=== PATIENT | female | born 1965 | race Caucasian/White ===

== ENCOUNTER 2021-05-25 18:30 | Emergency (ER) | payer MEDICARE ==
[~2021-05-25] VITALS: Ht 165.1 cm; Wt 59.1 kg
--- NOTE | 2021-05-25 18:49 | PHYS DOC ---
Past Medical History Past Medical History: GERD, Other Additional Past Medical Histor: AVM brain, deaf in R ear,VARICOSE VEINS Past Surgical History: Cholecystectomy, , Other Additional Past Surgical Histo: VWIN ATRIPPING Smoking Status: Never Smoker Alcohol Use: Rarely Drug Use: None General Adult EDM: Chief Complaint: CHEST PAIN HPI: HPI: 55-year-old female presents to the emergency department complaining of chest pain that feels like a sharp sensation in the left side of her chest that started around 1300 today while she was at work. 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 She reports that palpating the left side of her chest makes the pain worse. She denies any radiation of pain, shortness of breath, cough, syncope, abdominal pain, nausea vomiting. She has not taken anything for pain so far. Review of Systems: Review of Systems: ROS otherwise negative except for what was mentioned in the HPI Heart Score: C/O Chest Pain: Yes HEART Score for Chest Pain: HEART Score for Chest Pain Response (Comments) Value History Slighlty/Non-Suspicious 0 ECG Normal 0 Age >45 - < 65 1 Risk Factors 1 or 2 Risk Factors 1 Troponin < Normal Limit 0 Total 2 Allergies: Allergies: Allergies Coded Allergies Type Severity Reaction Last Updated Verified meperidine Allergy Intermediate rash 01/08/15 Yes Physical Exam: PE: Constitutional: No acute distress, non-toxic appearance. HENT: Atraumatic, bilateral external ears normal, nose normal. Eyes: Conjunctiva normal, no discharge. Neck: Normal range of motion, supple, no stridor. Cardiovascular: Heart rate regular rhythm. 2+ radial pulses and equal Lungs & Thorax: No respiratory distress, symmetrical expansion. Bilateral breath sounds clear to auscultation Chest wall: Reproducible left-sided chest pain to palpation upon auscultation of the chest. Abdomen: Soft, no tenderness Skin: Warm, dry. Extremities: No tenderness, no cyanosis, ROM intact, no edema. Neurologic: Alert and oriented X 3, normal motor function, normal sensory function, no focal deficits noted. GCS 15. Psychologic: Affect normal, judgment normal, mood normal. Current Patient Data: Labs: My Orders - URIAH GALEAS DO Procedure Category Date Status Time Oxygen Delivery [facility] 05/25/21 In Process Basic Metabolic Panel LAB 05/25/21 Complete 18:45 Cbc W Autodiff LAB 05/25/21 Complete 18:45 Portable Chest 1v RAD 05/25/21 Resulted 18:45 Troponin I Stat [facility] 05/25/21 In Process 18:45 Nt-Pro Bnp LAB 05/25/21 Complete 18:45 Troponini LAB 05/25/21 Complete 18:45 Troponini LAB 05/25/21 Complete 21:45 Troponini LAB 05/26/21 Verified 00:45 12 Lead Ekg EKG 05/25/21 Logged 18:45 12 Lead Ekg EKG 05/25/21 Logged 19:15 Pulse Oximetry: [facility] 05/25/21 In Process Standing Order 18:45 Famotidine Pf (Pepcid PHA 05/25/21 Complete Vial) 19:15 Laboratory Tests Test 05/25/21 19:00 05/25/21 22:05 White Blood Count 6.2 x10^3/uL (4.0-11.0) Red Blood Count 4.14 x10^6/uL (3.50-5.40) Hemoglobin 12.6 g/dL (12.0-15.5) Hematocrit 36.2 % (36.0-47.0) Mean Corpuscular Volume 87 fL (79-100) Mean Corpuscular Hemoglobin 31 pg (25-35) Mean Corpuscular Hemoglobin Concent 35 g/dL (31-37) Red Cell Distribution Width 14.5 % (11.5-14.5) Platelet Count 208 x10^3/uL (140-400) Neutrophils (%) (Auto) 54 % (31-73) Lymphocytes (%) (Auto) 28 % (24-48) Monocytes (%) (Auto) 10 % (0-9) Eosinophils (%) (Auto) 7 % (0-3) Basophils (%) (Auto) 1 % (0-3) Neutrophils # (Auto) 3.4 x10^3/uL (1.8-7.7) Lymphocytes # (Auto) 1.8 x10^3/uL (1.0-4.8) Monocytes # (Auto) 0.6 x10^3/uL (0.0-1.1) Eosinophils # (Auto) 0.4 x10^3/uL (0.0-0.7) Basophils # (Auto) 0.0 x10^3/uL (0.0-0.2) Sodium Level 142 mmol/L (136-145) Potassium Level 3.5 mmol/L (3.5-5.1) Chloride Level 104 mmol/L (98-107) Carbon Dioxide Level 32 mmol/L (21-32) Anion Gap 6 (6-14) Blood Urea Nitrogen 17 mg/dL (7-20) Creatinine 0.7 mg/dL (0.6-1.0) Estimated GFR (Cockcroft-Gault) 86.6 Glucose Level 90 mg/dL (70-99) Calcium Level 8.9 mg/dL (8.5-10.1) Troponin I Quantitative < 0.017 ng/mL (0.000-0.055) < 0.017 ng/mL (0.000-0.055) AX-Ixt-R-Type Natriuretic Peptide 221 pg/mL (0-124) Vital Signs: Vital Signs Date Time Temp Pulse Resp B/P (MAP) Pulse Ox O2 Delivery O2 Flow Rate FiO2 05/25/21 18:34 97.9 73 20 110/67 (81) 99 Room Air 97.9 EKG: EK: Normal sinus rhythm rate of 71, no ST-T wave changes, no ectopic beats, normal axis, normal AL, QRS, and QTc intervals. Impression: Normal EKG. interpreted by meUriah D.O. Radiology/Procedures: Radiology/Procedures: PROCEDURE: PORTABLE CHEST 1V Exam: Chest one view INDICATION: Chest pain TECHNIQUE: Frontal view of the chest Comparisons: None FINDINGS: The cardiomediastinal silhouette and pulmonary vessels are within normal limits. The lung and pleural spaces are clear. IMPRESSION: No acute cardiopulmonary process. Electronically signed by: Brody Cartagena MD (05/25/2021 9:17 PM) Course & Med Decision Making: Course & Med Decision Making 2 set troponin is negative, pain is likely musculoskeletal, patient is stable, feels improved and is appropriate for discharge with return precautions discussed. Departure Departure Impression: Primary Impression: Chest pain Disposition: HOME / SELF CARE / HOMELESS Condition: GOOD Referrals: CARLOS A RICH MD (PCP) Patient Instructions: Chest Pain (Nonspecific), [id number] Additional Instructions: You were seen in the emergency department for chest pain. Your exam and testing did not show any acute abnormality that warranted admission today but does not rule out underlying cardiovascular disease. You need to follow up with your primary doctor and/or cardiology for further evaluation. Return to the Emergency Department immediately, day or night, if you have worsening or continued chest pain, shortness of breath, nausea, sweating during chest pain, trouble breathing, chest pain with exertion (climbing stairs or walking for example), leg swelling or for any other concerns. URIAH GALEAS DO May 25, 2021 18:49
[2021-05-25 19:08] LABS: BASO % 1 % (0-3); EOS # 0.4 x10^3/uL (0.0-0.7); EOS % 7 % (0-3); HEMATOCRIT 36.2 % (36.0-47.0); HEMOGLOBIN 12.6 g/dL (12.0-15.5); LYMPH # 1.8 x10^3/uL (1.0-4.8); LYMPH % 28 % (24-48); MEAN CORPUSCULAR HEMOGLOBIN 31 pg (25-35); MEAN CORPUSCULAR HGB CONC 35 g/dL (31-37); MEAN CORPUSCULAR VOLUME 87 fL (79-100); MONO # 0.6 x10^3/uL (0.0-1.1); MONO % 10 % (0-9); NEUT # 3.4 x10^3/uL (1.8-7.7); NEUT % 54 % (31-73); PLATELET COUNT 208 x10^3/uL (140-400); RED BLOOD COUNT 4.14 x10^6/uL (3.50-5.40); RED CELL DISTRIBUTION WIDTH 14.5 % (11.5-14.5); WHITE BLOOD COUNT 6.2 x10^3/uL (4.0-11.0)
[2021-05-25] MEDS ORDERED: FAMOTIDINE 20 MG/2 ML VIAL IVP ONE (19:15)
[2021-05-25 19:16] LABS: CALCIUM 8.9 mg/dL (8.5-10.1); CREATININE 0.7 mg/dL (0.6-1.0); GFR 86.6; POTASSIUM 3.5 mmol/L (3.5-5.1)
--- NOTE | 2021-05-25 21:19 | RAD ---
Exam: Chest one view INDICATION: Chest pain TECHNIQUE: Frontal view of the chest Comparisons: None FINDINGS: The cardiomediastinal silhouette and pulmonary vessels are within normal limits. The lung and pleural spaces are clear. IMPRESSION: No acute cardiopulmonary process. Electronically signed by: Brody Cartagena MD (05/25/2021 9:17 PM) PHILIP
[2021-05-25 22:07] VITALS: BP 111/66
--- NOTE | 2021-05-26 02:47 | EKG ---
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
== END 2021-05-25 23:23 | disposition home or self-care (01) ==
LOC: ER 18:30
DX: R07.89 Other chest pain (principal); K21.9 Gastro-esophageal reflux disease without esophagitis; Z88.1 Allergy status to other antibiotic agents
CPT/HCPCS: 36415; 71045; 80048; 83880; 84484; 85025; 93005; 96374; 99284; J3490

== ENCOUNTER 2021-07-25 17:11 | Emergency (ER) | payer SELFPAY ==
[~2021-07-25] VITALS: Ht 165.1 cm; Wt 59.1 kg
[2021-07-25 20:20] VITALS: BP 134/95
[2021-07-25] MEDS ORDERED: AMOX875T PO (20:34)
--- NOTE | 2021-07-25 20:36 | PHYS DOC ---
Past Medical History Past Medical History: GERD, Other Additional Past Medical Histor: AVM brain, deaf in R ear,VARICOSE VEINS Past Surgical History: Cholecystectomy, , Other Additional Past Surgical Histo: VWIN ATRIPPING Smoking Status: Never Smoker Alcohol Use: Rarely Drug Use: None General Adult EDM: Chief Complaint: EARACHE/EAR PAIN HPI: HPI: Patient is a 55-year-old female who presents to the emergency department for bilateral ear pain and nasal congestion that started 2 days ago. Patient denies any treatment prior to arrival. She rates her pain 6 out of 10. She denies any cough, fever or shortness of breath. Review of Systems: Review of Systems: Constitutional: See HPI HENT: See HPI Respiratory: See HPI Heart Score: C/O Chest Pain: N/A Risk Factors: Risk Factors: DM, Current or recent (<one month) smoker, HTN, HLP, family history of CAD, obesity. Risk Scores: Score 0 - 3: 2.5% MACE over next 6 weeks - Discharge Home Score 4 - 6: 20.3% MACE over next 6 weeks - Admit for Clinical Observation Score 7 - 10: 72.7% MACE over next 6 weeks - Early Invasive Strategies Allergies: Allergies: Allergies Coded Allergies Type Severity Reaction Last Updated Verified meperidine Allergy Intermediate rash 01/08/15 Yes Physical Exam: PE: Constitutional: Well developed, well nourished, no acute distress, non-toxic appearance. [] HENT: Normocephalic, atraumatic, bilateral external ears normal, bilateral internal ears erythematous, ruptured right tympanic membrane , oropharynx moist, no oral exudates, nose normal. [] Eyes: PERRL, EOMI, conjunctiva normal, no discharge. [] Neck: Normal range of motion, no stridor Cardiovascular:Heart rate regular rhythm, no murmur [] Lungs & Thorax: Bilateral breath sounds clear to auscultation [] Abdomen: Soft and flat Skin: Warm, dry, no erythema, no rash. [] Back: Normal range of motion Extremities: No tenderness, no cyanosis, no clubbing, ROM intact, no edema. [] Neurologic: Alert and oriented X 3, normal motor function, normal sensory function, no focal deficits noted. [] Psychologic: Affect normal, judgement normal, mood normal. [] EKG: EKG: [] Radiology/Procedures: Radiology/Procedures: [] Course & Med Decision Making: Course & Med Decision Making Pertinent Labs and Imaging studies reviewed. (See chart for details) Patient presents to the emergency department for bilateral ear pain. On physical exam, it appears that she has erythema noted to left TM, right TM is not intact and patient reports that she is history of chronic right ruptured TM. Patient will be discharged home with an antibiotic. She is advised to not put anything into her right ear. She is also advised to take Tylenol and/or ibuprofen for pain. Advised to follow-up with her primary care provider. I discussed with patient all findings and diagnostic testing as well as the need to follow-up with PCP for further evaluation and treatment or return to the ER if any new or worsening symptoms. Strict return precautions were also discussed at length. Patient voiced understanding and agreement with the plan. Patient is hemodynamically stable at the time of disposition. Dragon Disclaimer: [place] Disclaimer: This electronic medical record was generated, in whole or in part, using a voice recognition dictation system. Departure Departure Impression: Primary Impression: Otitis media Qualified Codes: H66.90 - Otitis media, unspecified, unspecified ear Disposition: HOME / SELF CARE / HOMELESS Condition: GOOD Referrals: UNKNOWN PCP NAME (PCP) Patient Instructions: Otitis Media, Adult Additional Instructions: You were seen in the emergency department for bilateral ear pain. On physical exam you are noted to have an ear infection. This will be treated with an antibiotic. Please start and finish this completely. You reported that you have a chronic ruptured right eardrum, you should not put anything into your ear canal. You can take Tylenol and/ibuprofen for your pain. Follow-up with your primary care provider within a week if your symptoms persist. Return to the emergency department if you develop high fever refractory to treatment, intractable nausea or vomiting, shortness of breath, worsening of your pain or any new or worsening concerns. EMERGENCY DEPARTMENT GENERAL DISCHARGE INSTRUCTIONS Thank you for coming to [facility] Emergency Department (ED) today and trusting us with you care. We trust that you had a positive experience in our Emergency Department. If you wish to speak to the department management, you may call the Director at [phone]. YOUR FOLLOW UP INSTRUCTIONS ARE FOLLOWS: 1. Do you have a private Doctor? If you do not have a private doctor, please ask for a resource list of physicians or clinics that may be able to assist you with foll ow up care. 2. The Emergency Physicain has interpreted your x-rays. The X-Ray specialist will also review them. If there is a change in the findings, you will be notified in 48 hours when at all possible. 3. A lab test or culture has been done, your results will be reviewed and you will be notified if you need a change in treatment. ADDITIONAL INSTRUCTIONS AND INFORMATION: 1. Your care today has been supervised by a physician who is specially trained in emergency care. Many problems require more than one evaluation for a complete diagnosis and treatment. We recommend that you schedule your follow up appointment as re commended to ensure complete treatment of you illness or injury. If you are unable to obtain follow up care and continue to have a problem, or if your condition worsens, we recommend that you return to the ED. 2. We are not able to safely determine your condition over the phone nor are we able to give sound medical advice over the phone. For these safety reasons, if you call for medical advice we will ask you to come to the ED for further evaluation. 3. If you have any questions regarding these discharge instructions please call the ED at [phone]. SAFETY INFORMATION: In the interest of safety, wellness, and injury prevention; we encourage you to wear your sealbelt, if you smoke; quite smoking, and we encourage family to use a protective helmet for bicycling and other sporting events that present an increased risk for head injury. IF YOUR SYMPTOMS WORSEN OR NEW SYMPTOMS DEVELOP, OR YOU HAVE CONCERNS ABOUT YOUR CONDITION; OR IF YOUR CONDITION WORSENS WHILE YOU ARE WAITING FOR YOUR FOLLOW UP APPOINTMENT; EITHER CONTACT YOUR PRIMARY CARE DOCTOR, THE PHYSICIAN WHOSE NAME AND NUMBER YOU WERE GIVEN, OR RETURN TO THE ED IMMEDIATELY. Scripts Amoxicillin (AMOXICILLIN) 875 Mg Tablet 1 TAB PO BID for 5 Days, #10 TAB 0 Refills Prov: YULISSA QUINN APRN 07/25/21 YULISSA QUINN APRN Jul 25, 2021 20:36
== END 2021-07-25 21:16 | disposition home or self-care (01) ==
LOC: ER 17:11
DX: H66.93 Otitis media, unspecified, bilateral (principal); H72.91 Unspecified perforation of tympanic membrane, right ear; K21.9 Gastro-esophageal reflux disease without esophagitis; Z88.8 Allergy status to other drugs, medicaments and biological substances
CPT/HCPCS: 99283

== ENCOUNTER 2021-12-17 11:24 | Emergency (ER) | payer MEDICAID, MEDICARE ==
[~2021-12-17] VITALS: Ht 165.1 cm; Wt 64.1 kg
[~2021-12-17 11:24] MED LIST: AMOX875T PO
[2021-12-17] MEDS ORDERED: AMOX1TAB61 PO (13:10)
[2021-12-17] MEDS ORDERED: FLUT9.9S NS (13:10)
[2021-12-17] MEDS ORDERED: GUAI400T78 PO (13:10)
--- NOTE | 2021-12-17 13:12 | PHYS DOC ---
Past Medical History Past Medical History: GERD, Vascular Disease, Other Additional Past Medical Histor: AVM brain, deaf in R ear,VARICOSE VEINS Additional Past Surgical Histo: vein stripping Smoking Status: Never Smoker Alcohol Use: None Drug Use: None General Adult EDM: Chief Complaint: EARACHE/EAR PAIN HPI: HPI: Patient is a 56 year old female who presents with 6-day history of right ear pain. Patient states her pain is moderate, but has been persistent over the past 6 days. She reports associated bilateral pressure sensation with dull hearing. Patient noticed some fluid draining from the right ear this morning. Prior to her ear symptom onset, she noticed significant nasal congestion. Patient reports Covid exposure at work, where the coworker knows she is Covid positive and has continued to come to work daily. She denies fever, chills, generalized weakness, sore throat, cough, shortness of breath. Review of Systems: Review of Systems: ROS negative or noncontributory except as mentioned in HPI. Heart Score: C/O Chest Pain: No Allergies: Allergies: Allergies Coded Allergies Type Severity Reaction Last Updated Verified meperidine Allergy Intermediate rash 12/17/21 Yes Physical Exam: PE: Constitutional: Well developed, well nourished, no acute distress, non-toxic appearance. HENT: Normocephalic, atraumatic, bilateral external ears without deformity or discharge, left ear canal not erythematous with moderate amount of cerumen, left tympanic membrane pearly short without bulging or fluid level, right ear canal not erythematous with minimal cerumen, right tympanic membrane erythematous with purulence, oropharynx moist, no oral exudates, nose with significant mucus in bilateral nares. Eyes: EOMI, conjunctiva normal, no discharge. Neck: Normal range of motion, no tenderness, supple, no stridor. Skin: Warm, dry, no erythema, no rash. Neurologic: Alert and oriented x4, steady and symmetrical upright gait, no focal deficits noted. Current Patient Data: Vital Signs: Vital Signs Date Time Temp Pulse Resp B/P (MAP) Pulse Ox O2 Delivery O2 Flow Rate FiO2 12/17/21 11:32 97.7 74 16 136/79 (98) 97 97.7 Course & Med Decision Making: Course & Med Decision Making Pertinent Labs and Imaging studies reviewed. (See chart for details) Patient is a 56-year-old female who presents with upper respiratory prodromal syndrome followed by otitis media. Patient did have Covid exposure at work, and wishes to be tested for COVID-19 as well as influenza A&B. Patient questions were answered. Return precautions were provided. Patient understands and is agreeable to discharge plan. Dragon Disclaimer: Dragon Disclaimer: This electronic medical record was generated, in whole or in part, using a voice recognition dictation system. Departure Departure Impression: Primary Impression: Otitis media Qualified Codes: H66.001 - Acute suppurative otitis media without spontaneous rupture of ear drum, right ear Additional Impression: Upper respiratory infection Qualified Codes: J00 - Acute nasopharyngitis [common cold] Disposition: HOME / SELF CARE / HOMELESS Condition: STABLE Referrals: NO PCP (PCP) Patient Instructions: Otitis Media, Adult, [id number] Additional Instructions: EMERGENCY DEPARTMENT GENERAL DISCHARGE INSTRUCTIONS Thank you for coming to [facility] Emergency Department (ED) today and trusting us with you care. We trust that you had a positive experience in our Emergency Department. If you wish to speak to the department management, you may call the director at . YOUR FOLLOW UP INSTRUCTIONS ARE FOLLOWS: 1. Follow up with your primary care doctor. If you do not have a primary doctor, please ask for a resource list of physicians or clinics that may be able to assist you with follow up care. 2. The emergency provider has interpreted your imaging studies, if any were ordered. The radiology director imaging also reviewed them. If there is a change in the findings, you will be notified in 48 hours when at all possible. 3. If a lab test or culture has been done, your results will be reviewed and you will be notified if you need a change in treatment. 4. Follow instructions verbalized to you and refer to the printouts if needed. ADDITIONAL INSTRUCTIONS AND INFORMATION: 1. Your care today has been supervised by a physician who is specially trained in emergency care. Many problems require more than one evaluation for a complete diagnosis and treatment. We recommend that you schedule your follow up appointment as recommended to ensure complete treatment of you illness or injury. If you are unable to obtain follow up care and continue to have a problem, or if your condition worsens, we recommend that you return to the ED. 2. We are not able to safely determine your condition over the phone nor are we able to give sound medical advice over the phone. For these safety reasons, if you call for medical advice we will ask you to come to the ED for further evaluation. 3. If you have any questions regarding these discharge instructions please call the ED at . SAFETY INFORMATION: In the interest of safety, wellness, and injury prevention; we encourage you to wear your seat belt, if you smoke; quite smoking, and we encourage family to use a protective helmet for bicycling and other sporting events that present an increased risk for head injury. IF YOUR SYMPTOMS WORSEN OR NEW SYMPTOMS DEVELOP, OR YOU HAVE CONCERNS ABOUT YOUR CONDITION; OR IF YOUR CONDITION WORSENS WHILE YOU ARE WAITING FOR YOUR FOLLOW UP APPOINTMENT; EITHER CONTACT YOUR PRIMARY CARE DOCTOR, THE PHYSICIAN WHOSE NAME AND NUMBER YOU WERE GIVEN, OR RETURN TO THE ED IMMEDIATELY. Scripts Guaifenesin (GUAIFENESIN) 400 Mg Tablet 1 TAB PO TID for cough for 5 Days, #15 TAB 0 Refills Prov: OCTAVIO CRAFT 12/17/21 Fluticasone Propionate (Flonase Allergy Relief) 9.9 Ml [place].susp 2 SPRAYS NS DAILY, #1 BOX Prov: OCTAVIO CRAFT 12/17/21 Amoxicillin/Potassium Clav (AUGMENTIN 875-125 TABLET) 1 Each Tablet 1 TAB PO BID for 10 Days, #20 TAB 0 Refills Prov: OCTAVIO CRAFT 12/17/21 OCTAVIO CRAFT Dec 17, 2021 13:12
[2021-12-17 13:17] VITALS: BP 119/68
[2021-12-17 13:29] LABS: INFLUENZA A PATIENT NEGATIVE (NEGATIVE); INFLUENZA B PATIENT NEGATIVE (NEGATIVE)
== END 2021-12-17 13:18 | disposition home or self-care (01) ==
LOC: ER 11:24
DX: H66.001 Acute suppurative otitis media without spontaneous rupture of ear drum, right ear (principal); J00 Acute nasopharyngitis [common cold]; Z20.822 Contact with and (suspected) exposure to COVID-19; K21.9 Gastro-esophageal reflux disease without esophagitis; Z88.1 Allergy status to other antibiotic agents
CPT/HCPCS: 87428; 99283; C9803; U0003